=== PATIENT | male | born 2000 | race Caucasian/White ===

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

== ENCOUNTER 2020-03-17 11:52 | Emergency (ER) | payer OTHER, SELFPAY ==
[2020-03-17 12:55] VITALS: BP 112/71; PULSE 64; RESP 16; TEMP 36.6; O2SAT 97; BMI 27.1
--- NOTE | 2020-03-17 13:10 | HMH.EDUTC ---
[facility] [place] Clinical Impression: Exposure to COVID-19 virus Disposition: Home, Self-Care Condition on Discharge: Good Instructions: Preventing the Spread of Coronavirus Discharge Instructions Additional Instructions: *Monitor Temp, Over the counter Motrin or Tylenol as directed/as needed Tylenol every 4 hours and Motrin every 6 hours (as long as your family doctor has told you that you can take it) for fever or pain. and straight to ER if unable to lower temp less than 101.0 after medication given *Warm salt water gargles may help to soothe the throat *Throat Lozenges *Warm fluids like tea with honey may help to soothe the throat *Sleep elevated *Humidifier/Vaporizer Follow up IMMEDIATELY for new or worsening symptoms or no Noticeable improvement over the next 48-72 hours. 911 for difficulty breathing or swallowing You was tested for today for COVID19 your test result should be back in the next 24-48 hours, you may call to the [facility] later today or tomorrow to see if your test results are back and the result [phone] [facility] hours are 9am-9pm You was given a handout with instructions for Self Quarantine and Self isolation for while you wait on test results and what to do if they are positive If you are positive the Health Dept will be contacting you also Referrals: PCP,No [Primary Care Provider] - As needed Forms: Work/School Release Time of Disposition: 13:13 Medical Decision Making - Wilfrid Inquiry Pt receiving controlled substance: No Wilfrid was queried for this patient: No Vital Signs: 03/17/20 12:55 Temperature 97.9 F Temperature Source Oral Pulse Rate [Right Brachial] 64 Respiratory Rate 16 Blood Pressure [Right Arm] 112/71 Blood Pressure Mean [Right Arm] 84 Blood Pressure Source [Right Arm] Automatic Cuff Blood Pressure Position [Right Arm] Sitting 02 Sat by Pulse Oximetry 97 Oxygen Delivery Method Room Air Orders (Tests/Meds): ORDERS Category Date Time Status Covid-19 Nasal PCR Sendout Jameel Routine Lab 03/17/20 12:24 Ordered [facility] [place]PI - General Stated complaint: covid exposure Time Seen by Provider: 03/17/20 13:10 Mode of Arrival: Ambulatory Source of Information: Patient Limitations: No Limitations Description of Symptoms (Recalled from Triage Doc. by RN): PATIENT REQUESTING COVID TEST D/T EXPOSURE; DENIES SYMPTOMS HEENT Symptoms (Recalled from RN notes): No Resp Symptoms (Recalled from RN notes): No Skin Symptoms (Recalled from RN notes): No MS Symptoms (Recalled from RN notes): No Functional Status (Recalled from RN notes): WNL - History of Present Illness Provider Complaint: Patient states that he was exposed to COVID by his parents States that he lives with his parents and both of them recently tested positive for COVID and he works at [employer] and they required him to come in and get tested States that he is not having any symptoms - Related Data Home Medications Medication Instructions Recorded Confirmed No Known Home Medications 04/19/19 04/19/19 Previous Rx's Medication Instructions Recorded albuterol sulfate 90 mcg/actuation 2 puff INHALATION Q6H PRN 7 Days 04/19/19 aerosol inhaler #6.7 g benzonatate 200 mg capsule 200 mg PO TID PRN 7 Days #21 cap 04/19/19 Allergies Allergy/AdvReac Type Severity Reaction Status Date / Time Penicillins Allergy Verified 03/17/20 13:08 - Worker's Comp Is this a Worker's Comp case?: No [facility] History - Hepatitis A Screen Drug use history?: No High risk sexual behaviors?: No History of sexually transmitted infection?: No Currently employed?: No Childcare worker?: No Do you have indoor plumbing?: Yes Do you have electricity?: Yes Attestation statement:: This patient has been screened for Hepatitis A risk factors. I have reviewed the patient's past medical history: Yes Laterality Cases: Bilateral: Tonsillectomy Amputation: No Fractures: No - Social History Smoking Status: Never smoker Alcohol I
[2020-03-17 13:20] VITALS: BP 112/71; PULSE 64; RESP 16; TEMP 36.6; O2SAT 97
[2020-03-19 15:13] LABS: Covid-19 Nasal PCR Sendout Lex Positive
== END 2020-03-17 13:28 | disposition home or self-care (01) ==
PROVIDERS: Emergency Provider Nurse Practitioner
DX: U07.1 COVID-19 (principal)
CPT/HCPCS: 99201; U0004